=== PATIENT | male | born 1950 | race American Indian/Alaskan Native ===

== ENCOUNTER 2018-09-09 19:00 | Emergency (ER) | payer MEDICARE ==
--- NOTE | 2018-09-09 19:07 | Event Note ---
ED Screening Note ED Screening Note: seen at [facility] for insect bite on back they gave him bactrim and also norvasc here because he thinks wound is infected and he has a headache neuro intact VSS no fever pmh htn allergies none no travel This initial assessment/diagnostic orders/clinical plan/treatment(s) is/are subject to change based on patients health status, clinical progression and re- assessment by fellow clinical providers in the ED. Further treatment and workup at subsequent clinical providers discretion. Patient/guardian urged not to elope from the ED as their condition may be serious if not clinically assessed and managed. Initial orders include: labs eval bite in [facility]
[2018-09-09 19:26] LABS: Hematocrit 44.9 % (35.5-45.6); Hemoglobin 14.6 gm/dl (11.8-15.2); Mean Corpuscular HGB Conc 32 % (32-34); Mean Corpuscular Volume 76 fl (84-94); Platelet Count 174 K/mm3 (140-440); Red Blood Count 5.91 M/mm3 (3.65-5.03); Red Cell Distribution Width 15.8 % (13.2-15.2)
[2018-09-09 19:49] LABS: BUN/Creatinine Ratio 16; Blood Urea Nitrogen 14 mg/dL (9-20); Calcium 8.6 mg/dL (8.4-10.2); Hemolysis Index 5
[2018-09-09] MEDS ORDERED: IBUPROFEN PO ONE (21:37)
--- NOTE | 2018-09-09 21:40 | Emergency Department Report ---
ED Headache HPI - General Chief Complaint: Headache Stated Complaint: HEAD PAIN Time Seen by Provider: 09/09/18 19:07 - History of Present Illness Initial Comments: 67-year-old male comes in reporting he has a headache and feels like his blood pressure is high. Patient reports that he was seen at [facility] a few days ago and was placed on Bactrim and amlodipine. Patient was placed on Bactrim for insect bite and amlodipine for elevated blood pressure. Patient reports he still has pain at the insect bite area. Review of vital signs from triage patient has a low-grade fever of 100.4. Blood pressure is stable at 146/90. P atient has a past medical history of hypertension. Quality: mild Head Injury Location: global Associated Symptoms: denies symptoms Allergies/Adverse Reactions: Allergies No Known Allergies Allergy (Unverified 08/24/13 07:23) Home Medications: Ambulatory Orders Fluticasone [Flonase] 1 spray NS QDAY #1 bottle 11/26/14 Ibuprofen [Motrin 600 MG tab] 600 mg PO Q8H PRN #30 tablet 11/26/14 guaiFENesin/CODEINE [Robitussin AC] 5 ml PO Q6HR #120 ml 11/26/14 ED Review of Systems ROS: Stated complaint: HEAD PAIN Other details as noted in HPI Comment: All other systems reviewed and negative ED Past Medical Hx - Past Medical History Previous Medical History?: Yes Hx Hypertension: Yes - Surgical History Past Surgical History?: No - Social History Smoking Status: Current Every Day Smoker Substance Use Type: None - Medications Home Medications: Home Medications Medication Instructions Recorded Confirmed Last Taken Type Fluticasone [Flonase] 1 spray NS QDAY #1 bottle 11/26/14 Unknown Rx Ibuprofen [Motrin 600 MG tab] 600 mg PO Q8H PRN #30 tablet 11/26/14 Unknown Rx guaiFENesin/CODEINE [Robitussin AC] 5 ml PO Q6HR #120 ml 11/26/14 Unknown Rx ED Physical Exam - General Limitations: No Limitations General appearance: alert, in no apparent distress - Head Head exam: Present: atraumatic, normocephalic - Eye Eye exam: Present: normal appearance - ENT ENT exam: Present: mucous membranes moist - Neck Neck exam: Present: normal inspection - Respiratory Respiratory exam: Present: normal lung sounds bilaterally. Absent: respiratory distress - Extremities Exam Extremities exam: Present: normal inspection - Back Exam Back exam: Present: normal inspection - Neurological Exam Neurological exam: Present: alert, oriented X3 - Psychiatric Psychiatric exam: Present: normal affect, normal mood - Expanded Skin Exam Expanded Type of lesion: Present: bite/sting Distribution of rash: back Description of rash: Present: tenderness, erythematous. Absent: swelling ED Course Vital Signs 09/09/18 09/09/18 19:30 22:15 Temperature 100.4 F H 100.3 F H Pulse Rate 97 H 85 Respiratory 18 17 Rate Blood Pressure 146/90 Blood Pressure 136/83 [Left] O2 Sat by Pulse 96 94 Oximetry ED Medical Decision Making - Lab Data Result diagrams: 09/09/18 19:09 09/09/18 19:09 - Medical Decision Making 67-year-old -[place] male presents to the emergency room for feeling like his blood pressure is high and a headache. Patient has been given ibuprofen 800 mg in ACC. Lab work CBC CMP are stable. Patient be discharged home to follow up with the primary care provider. Critical care attestation.: If time is entered above; I have spent that time in minutes in the direct care of this critically ill patient, excluding procedure time. ED Disposition Clinical Impression: Headache Qualifiers: Headache type: unspecified Headache chronicity pattern: acute headache Intractability: intractable Qualified Code(s): R51 - Headache Hypertension Qualifiers: Hypertension type: essential hypertension Qualified Code(s): I10 - Essential (primary) hypertension Disposition: DC-01 TO HOME OR SELFCARE Is pt being admited?: No Does the pt Need Aspirin: No Condition: Stable Instructions: Acute Headache (ED), Hypertension (ED) Additional Instructions: Continue with antibiotics and blood pressure medication follow up with the primary care provider I have listed one below for your convenience. He can take Tylenol and/or Motrin for headache and pain. Referrals: MÓNICA HUTCHISON MD [Primary Care Provider] - 3-5 Days TALI GAMA MD [Staff Physician] - 3-5 Days DESTINEY MEDINA MD [Staff Physician] - 3-5 Days
[2018-09-10 00:23] VITALS: BP 158/90
== END 2018-09-10 00:25 | disposition home or self-care (01) ==
LOC: ED 19:00
DX: R51 Headache (principal); I10 Essential (primary) hypertension; F17.200 Nicotine dependence, unspecified, uncomplicated
CPT/HCPCS: 36415; 80048; 85027